=== PATIENT | male | born 1970 | race Caucasian/White ===

== ENCOUNTER 2021-10-22 17:10 | Emergency (ER) | payer OTHER ==
[~2021-10-22] VITALS: Ht 165.1 cm; Wt 82.1 kg
[2021-10-22 18:02] VITALS: BP 167/104
--- NOTE | 2021-10-22 21:47 | NUR ---
PT AMBULATED TO BED 02.
--- NOTE | 2021-10-22 23:00 | NUR ---
51 Y/O MALE BIB SPOUSE WITH C/O OF HEADACHE RADIATING TO THE SIDES AND BACK OF HEAD. OCCASIONALY HE FEELS PAIN IN THE BACK OF THE NECK. PT STATES THAT HE WAS HAVING SEX AND AFTERWORD HE GOT A TERRIBLE HEADACHE. PT STATES HE HAS NO HX OF HTN BUT HE DOES HAVE A FAMILY HX OF HTN. PT HAS NO AT HOME MEDS. PT NOT COVID VACCINEATED. PT STATES THAT HE DOES FEEL A LITTLE BIT OF SORENESS AROUND HIS CHEST AREA. PT DENIES F/N/V/COUGH.
[2021-10-22] MEDS ORDERED: diphenhydrAMINE 50 MG/ML VIAL IM ONE (23:45)
[2021-10-22] MEDS ORDERED: KETOROLAC 30 MG/ML VIAL IM ONE (23:45)
[2021-10-23] VITALS: BP 127/76
[2021-10-23] MEDS ORDERED: FLONAS NS (00:29)
--- NOTE | 2021-10-23 00:40 | NUR ---
Patient discharged with v/s stable. Written and verbal after care instructions given and explained. Patient alert, oriented and verbalized understanding of instructions. Ambulatory with steady gait. All questions addressed prior to discharge. ID band removed. Patient advised to follow up with PMD. Rx of FLONASE given. Patient educated on indication of medication including possible reaction and side effects. Opportunity to ask questions provided and answered.
--- NOTE | 2021-10-23 00:50 | NUR ---
The patient's care was reviewed and supervised by Daja Dailey RN.
== END 2021-10-23 00:40 | disposition home or self-care (01) ==
LOC: MED 17:10
DX: R51.9 Headache, unspecified (principal); J30.9 Allergic rhinitis, unspecified; Z90.49 Acquired absence of other specified parts of digestive tract; Z79.899 Other long term (current) drug therapy
CPT/HCPCS: 96372; 99284; J1200; J1885

== ENCOUNTER 2022-03-22 08:49 | Day surgery (SDC) | payer OTHER ==
[~2022-03-22] VITALS: Ht 157.5 cm; Wt 80.7 kg
[~2022-03-22 08:49] MED LIST: FLONAS NS
[2022-03-22] MEDS ORDERED: fentaNYL citrate 0.05 MG/ML VIAL ONE (10:51)
[2022-03-22] MEDS ORDERED: LIDOCAINE 2% 100 MG/5 ML UJET TP ONE (10:52)
[2022-03-22] MEDS ORDERED: fentaNYL citrate 0.05 MG/ML VIAL IVP ONE (13:50)
== END 2022-03-22 11:50 | disposition home or self-care (01) ==
LOC: MOR 08:49 → MMU 09:18 → MOR 11:50
PROVIDERS: ATTEND Internal Medicine Gastroenterology
DX: Z12.11 Encounter for screening for malignant neoplasm of colon (principal); K63.5 Polyp of colon; K57.30 Diverticulosis of large intestine without perforation or abscess without bleeding; Z20.822 Contact with and (suspected) exposure to COVID-19; Z79.899 Other long term (current) drug therapy
CPT/HCPCS: 45385; 87426; J3010

== ENCOUNTER 2022-12-15 13:07 | Emergency (ER) | payer OTHER ==
[~2022-12-15] VITALS: Ht 162.6 cm; Wt 81.8 kg
[2022-12-15 13:43] VITALS: BP 149/80
--- NOTE | 2022-12-15 13:59 | NUR ---
lab called in lobby and outside, no answer
[2022-12-15 14:15] LABS: BASOPHILS % (AUTO) 0.5 % (0.0-2.0); EOSINOPHILS # (AUTO) 0.1 K/uL (0-0.4); EOSINOPHILS % (AUTO) 1.5 % (0.0-4.0); HEMOGLOBIN 15.7 g/dL (12.0-18.0); LYMPHOCYTES # (AUTO) 1.6 K/uL (2.0-11.5); LYMPHOCYTES % (AUTO) 31.3 % (20.5-51.1); MEAN CORPUSCULAR HEMOGLOBIN 29 pg (27-31); MEAN CORPUSCULAR HGB CONC 34 g/dL (33-37); MEAN CORPUSCULAR VOLUME 85.7 fL (80-94); MONOCYTES # (AUTO) 0.3 K/uL (0.8-1.0); MONOCYTES % (AUTO) 5.5 % (1.7-9.3); NEUTROPHILS # (AUTO) 3.2 K/uL (1.8-7.7); NEUTROPHILS % (AUTO) 61.2 % (42.2-75.2); PLATELET COUNT (AUTO) 195 K/uL (140-450); RED BLOOD CELL COUNT(AUTO) 5.37 MIL/uL (4.20-6.10); RED CELL DISTRIBUTION WIDTH 13.4 % (11.6-13.7); WHITE BLOOD COUNT (AUTO) 5.2 K/uL (4.8-10.8)
[2022-12-15 14:45] LABS: ANION GAP 14.6 (8-16); CARBON DIOXIDE 25.7 mmol/L (21-32); POTASSIUM 4.3 mmol/L (3.5-5.1)
[2022-12-15 14:51] LABS: APPEARANCE,URINE CLEAR (CLEAR); BILIRUBIN,URINE NEGATIVE (NEGATIVE); BLOOD, URINE NEGATIVE (NEGATIVE); COLOR,URINE YELLOW (YELLOW); LEUKOCYTE ESTERASE ,URINE NEGATIVE (NEGATIVE); NITRITE, URINE NEGATIVE (NEGATIVE); UGLUCOSE NEGATIVE (NEGATIVE)
[2022-12-15 14:58] LABS: ALBUMIN 4.6 g/dL (3.4-5.0); TOTAL BILIRUBIN 1.7 mg/dL (0.0-1.0)
[2022-12-15] MEDS ORDERED: FAMO-90 PO (15:33)
--- NOTE | 2022-12-15 15:38 | NUR ---
Patient discharged with v/s stable. Written and verbal after care instructions given and explained. Patient alert, oriented and verbalized understanding of instructions. Ambulatory with steady gait. All questions addressed prior to discharge. ID band removed. Patient advised to follow up with PMD. Rx of PEPCID (SENT) given. Patient educated on indication of medication including possible reaction and side effects. Opportunity to ask questions provided and answered. LABS COPY GIVEN
== END 2022-12-15 15:38 | disposition home or self-care (01) ==
LOC: MED 13:07
DX: K25.9 Gastric ulcer, unspecified as acute or chronic, without hemorrhage or perforation (principal); E78.5 Hyperlipidemia, unspecified; Z90.49 Acquired absence of other specified parts of digestive tract; Z98.890 Other specified postprocedural states
CPT/HCPCS: 36415; 80053; 81003; 85025; 99283

== ENCOUNTER 2024-05-29 12:52 | Emergency (ER) | payer OTHER ==
[~2024-05-29] VITALS: Ht 165.1 cm; Wt 83.0 kg
[~2024-05-29 12:52] MED LIST changes: +FAMO-90 PO
[2024-05-29 13:19] VITALS: BP 128/78; PULSE 63; RESP 16; TEMP 98; O2SAT 99
[2024-05-29] MEDS: KETOROLAC 30 MG/ML VIAL IM ONE (13:53)
[2024-05-29] MEDS ORDERED: CYCL-711 PO (15:14)
[2024-05-29] MEDS ORDERED: LID5T TP (15:14)
[2024-05-29] MEDS ORDERED: NAPR-337 PO (15:14)
== END 2024-05-29 15:26 | disposition home or self-care (01) ==
LOC: MED 12:52
DX: M54.50 Low back pain, unspecified (principal); E78.5 Hyperlipidemia, unspecified; Z79.1 Long term (current) use of non-steroidal anti-inflammatories (NSAID); Z79.899 Other long term (current) drug therapy
CPT/HCPCS: 72100; 96372; 99283; J1885; 81002